=== PATIENT | male | born 1960 | race Caucasian/White ===

== ENCOUNTER → 2016-10-29 | Outpatient (CLI) | payer BC ==
[~2016-10-29] MED LIST: ZOCOR 20MG20 MG PO
[2016-10-29 09:09] LABS: BASO % 0.9 % (0.0-2.0); EOS # 0.1 (0.0-0.7); GRAN # 2.4 (1.4-6.5); GRAN % 53.6 % (42.2-75.2); HEMOGLOBIN 14.8 g/dl (13.5-18.0); LYMPH # 1.4 (1.2-3.4); LYMPH % 31.4 % (20.0-51.0); MEAN CELL VOLUME 86 fl (80.0-100.0); MEAN CORPUSCULAR HEMOGLOBIN 30 pg (27.0-31.0); MEAN CORPUSCULAR HGB CONC 34 g/dl (33.0-37.0); MEAN PLATELET VOLUME 8.5 fl (7.4-10.4); MONO # 0.5 (0.1-0.6); MONO % 10.9 % (1.7-9.3); PLATELET COUNT 150 K/mm3 (130-400); RED BLOOD COUNT 4.99 M/mm3 (4.20-5.60); REDCELL DISTRIBUTION WIDTH-CV 12.6 % (11.5-14.5); WHITE BLOOD COUNT 4.4 K/mm3 (4.8-10.8)
[2016-10-29 09:18] LABS: PH 7 (5-8); SQUAMOUS EPITHELIAL None Seen /hpf; URINE APPEARANCE Clear; URINE BACTERIA None Seen /hpf; URINE BILIRUBIN Negative (NEGATIVE); URINE BLOOD Negative (NEGATIVE); URINE COLOR Yellow; URINE GLUCOSE Negative (NEGATIVE); URINE KETONE Negative (NEGATIVE); URINE UROBILINOGEN Negative (NEGATIVE); URINE WBC 0-2 /hpf
[2016-10-29 09:20] LABS: ADJUSTED CALCIUM 9.2 mg/dL (8.4-10.2); ALBUMIN 4.1 gm/dL (3.5-5.0); BILIRUBIN,TOTAL 0.8 mg/dL (0.0-1.0); CALCIUM 9.3 mg/dL (8.4-10.2); CREATININE, serum 1.01 mg/dL (0.66-1.25); POTASSIUM 4.2 mmol/L (3.4-5.0); TOTAL PROTEIN 7.1 gm/dL (6.4-8.2)
[2016-10-29 09:50] LABS: PSA-TOTAL 1.09 ng/mL (0-4)
[2016-10-29 10:31] LABS: THYROID STIMULATING HORMONE 2.95 uIU/mL (0.465-4.680)
== END ==
LOC: COL.LAB 08:33
PROVIDERS: Internal Medicine
DX: Z00.00 Encounter for general adult medical examination without abnormal findings (principal); Z11.59 Encounter for screening for other viral diseases
CPT/HCPCS: G0103

== ENCOUNTER → 2017-11-04 | Outpatient (CLI) | payer BC ==
[2017-11-04 09:21] LABS: COLLECTION METHOD CLEAN CATCH
[2017-11-04 09:25] LABS: BASO # 0.1 (0.0-0.2); BASO % 0.8 % (0.0-2.0); EOS # 0.2 (0.0-0.7); EOS % 2.4 % (0-4.0); GRAN # 3.5 (1.4-6.5); GRAN % 56.1 % (42.2-75.2); HEMATOCRIT 45.5 % (42.0-52.0); HEMOGLOBIN 15.6 g/dl (13.5-18.0); LYMPH # 1.9 (1.2-3.4); LYMPH % 30.9 % (20.0-51.0); MEAN CELL VOLUME 87 fl (80.0-100.0); MEAN CORPUSCULAR HEMOGLOBIN 30 pg (27.0-31.0); MEAN CORPUSCULAR HGB CONC 34 g/dl (33.0-37.0); MEAN PLATELET VOLUME 8.4 fl (7.4-10.4); MONO # 0.6 (0.1-0.6); MONO % 9.5 % (1.7-9.3); PLATELET COUNT 177 K/mm3 (130-400); RED BLOOD COUNT 5.23 M/mm3 (4.20-5.60); REDCELL DISTRIBUTION WIDTH-CV 12.7 % (11.5-14.5)
[2017-11-04 09:28] LABS: MUCOUS Present /lpf; PH 5 (5-8); SQUAMOUS EPITHELIAL None Seen /hpf; URINE APPEARANCE Clear; URINE BACTERIA None Seen /hpf; URINE BILIRUBIN Negative (NEGATIVE); URINE BLOOD Negative (NEGATIVE); URINE COLOR Yellow; URINE GLUCOSE Negative (NEGATIVE); URINE KETONE Negative (NEGATIVE); URINE LEUKOCYTE ESTERASE Negative (NEGATIVE); URINE NITRATE Negative (NEGATIVE); URINE PROTEIN(semi-quant) Negative (NEGATIVE); URINE RBC 0-2 /hpf; URINE UROBILINOGEN Negative (NEGATIVE); URINE WBC 0-2 /hpf
[2017-11-04 09:40] LABS: ALBUMIN 4.3 gm/dL (3.5-5.0); BILIRUBIN,TOTAL 0.6 mg/dL (0.0-1.0); CALCIUM 9.5 mg/dL (8.4-10.2); CHOLESTEROL RISK RATIO 3.8; CREATININE, serum 1.12 mg/dL (0.66-1.25); POTASSIUM 4.2 mmol/L (3.4-5.0)
[2017-11-04 10:09] LABS: THYROID STIMULATING HORMONE 1.9 uIU/mL (0.465-4.680)
[2017-11-04 10:51] LABS: PSA-TOTAL 1.22 ng/mL (0-4)
== END ==
LOC: COL.LAB 08:26
PROVIDERS: Internal Medicine
DX: Z00.00 Encounter for general adult medical examination without abnormal findings (principal)
CPT/HCPCS: G0103

== ENCOUNTER 2020-11-06 21:33 | Observation (INO) | payer BC ==
[~2020-11-06] VITALS: Ht 182.9 cm; Wt 109.1 kg
[2020-11-07] VITALS (16 sets, daily range): BP systolic 78–106; BP diastolic 45–60; PULSE 47–59; TEMP 97.5–97.9
--- NOTE | 2020-11-07 01:30 | NUR ---
PT ADMITTED TO ROOM 331 PER BED FROM PACU. S/P LAP APPY. X3 BANDAIDS CDI. DENIES PAIN. SEE VSS. ORIENTED TO ROOM. IV D5 1/2NS STARTED AT 75CC/HR PER PUMP TO LT WRIST- POSITIONAL.
--- NOTE | 2020-11-07 02:15 | NUR ---
O2 SAT 88%. STARTED O2 1L NC. PROVIDED INCENTIVE SPIROMETER- COMPLETED TO >1800CC SEVERAL TIMES. O2 UP TO 92%. ENC TO USE FREQUENTLY.
--- NOTE | 2020-11-07 03:44 | NUR ---
NOTIFIED DR BRADY OF HYPOTENSION. SEE NEW ORDERS.
--- NOTE | 2020-11-07 04:30 | NUR ---
SEE MAR FOR TYLENOL GIVEN FOR ABD INCISION AL PAIN. LEVEL 2/10. PT VOIDED 450CC CLEAR YELLOW URINE.
[2020-11-07 04:33] LABS: ALBUMIN 4.7 gm/dL (3.5-5.0); BILIRUBIN,TOTAL 0.9 mg/dL (0.0-1.0); CALCIUM 9.4 mg/dL (8.4-10.2); CREATININE, serum 0.77 (0.66-1.25); TOTAL PROTEIN 8.3 gm/dL (6.4-8.2)
--- NOTE | 2020-11-07 05:15 | NUR ---
PT RESTING. NO EVIDENCE OF PAIN.
--- NOTE | 2020-11-07 06:55 | NUR ---
Lying in bed with eyes closed. Opens eyes when enter room. Alert and oriented x4. Patient denies pain. Says that he is tired and that his BPs have been running low. Abd lap sites x3 with bandaids CDI. Denies nausea. Denies additional needs or concerns at this time.
[2020-11-07 07:18] LABS: BASO % 0.3 % (0.0-2.0); EOS % 0.2 % (0-4.0); GRAN # 9.9 (1.4-6.5); GRAN % 77.6 % (42.2-75.2); HEMATOCRIT 43.8 % (42.0-52.0); HEMOGLOBIN 15.2 g/dl (13.5-18.0); LYMPH # 1.8 (1.2-3.4); LYMPH % 14.3 % (20.0-51.0); MEAN CELL VOLUME 88 fl (80.0-100.0); MEAN CORPUSCULAR HEMOGLOBIN 30 pg (27.0-31.0); MEAN CORPUSCULAR HGB CONC 35 g/dl (33.0-37.0); MEAN PLATELET VOLUME 8.5 fl (7.4-10.4); MONO # 0.9 (0.1-0.6); MONO % 7.2 % (1.7-9.3); PLATELET COUNT 177 K/mm3 (130-400); RED BLOOD COUNT 4.99 M/mm3 (4.20-5.60)
--- NOTE | 2020-11-07 08:52 | NUR ---
in room with the patient. Sitting up in bed with eyes open. Was able to eat pancakes. Denies additional needs or concerns at this time.
--- NOTE | 2020-11-07 09:53 | NUR ---
Ambulating in halls. Denies complaints. Is ready to go home. Denies additional needs.
--- NOTE | 2020-11-07 10:55 | NUR ---
Initial visit; Patient thanked [employer] for looking in on him and offering her blessings for a good recovery.
--- NOTE | 2020-11-07 11:46 | NUR ---
Lying in bed talking with visitor in room. Patient explains that he does not think that he will get to discharge because his BP still is on the lower side. Dr. Ponce will be in to see the patient. Patient denies needs at this time.
--- NOTE | 2020-11-07 13:15 | NUR ---
Ambulating in halls. Denies feeling dizzy or lightheaded. Patient says that he is starting to get some muscle tightness in abd and would like Tylenol. Administer as prescribed. Patient says that he feels like the anesthesia is starting to wear off more at this time. Explain that we will reassess BP in couple hours, see how he is doing, and then call Dr. Ponce to give update to see if he can discharge. Patient verbalizes understanding. Denies additional needs.
--- NOTE | 2020-11-07 14:29 | NUR ---
Patient ambulating in halls. Says he feels good, would like to recheck BP, and if able see if he can discharge. BP 106/60. Explain we will update Dr. Ponce and let him know. Contact Dr. Ponce and provide update. Orders received to discharge.
--- NOTE | 2020-11-07 14:38 | NUR ---
Patient updated that we can discharge. Patient will get dressed at this time and gather belongings. is in room to take patient home.
--- NOTE | 2020-11-07 14:47 | NUR ---
Dischare instructions reviewed with the patient and his . Denies questions and signs all documents. Discharge packet provided to the patient. Patient assisted out to POV ambulatory by this nurse with all belongings.
[2020-11-11 19:25] VITALS: BP 89/47; PULSE 59; TEMP 97.6
== END 2020-11-07 14:47 | disposition home or self-care (01) ==
LOC: COL.ER 21:33 → SURG 23:10
PROVIDERS: Nurse Practitioner; ADMIT Surgery
DX: K35.80 Unspecified acute appendicitis (principal); E78.00 Pure hypercholesterolemia, unspecified
CPT/HCPCS: G0378; J1100; J1885; J2250; J2405; J2704; J3010; J7030; J7040; J7042